=== PATIENT | female | born 1985 | race Two or more races ===

== ENCOUNTER 2020-04-18 16:27 | Emergency (ER) | payer MEDICAID ==
[~2020-04-18] VITALS: Ht 165.1 cm; Wt 80.7 kg
[~2020-04-18 16:27] MED LIST: PREN-96 PO
[2020-04-18 18:14] LABS: Basophils # (auto) 0.1 10 ^3/uL (0-0.2); Basophils % (auto) 0.9 % (0.0-2.0); Eosinophils # (auto) 0.1 10 ^3/uL (0-0.8); Eosinophils % (auto) 1.5 % (0.0-7.0); Lymphocytes # (auto) 2.6 10 ^3/uL (0.4-5.4); Lymphocytes % (auto) 41.4 % (10.0-50.0); Mean Corpuscular Hemoglobin 28.3 pg (28.0-32.0); Mean Corpuscular Hgb Conc. 33.4 g/dL (32.0-36.0); Mean Corpuscular Volume 84.8 fL (80.0-100.0); Monocytes # (auto) 0.4 10 ^3/uL (0-1.3); Neutrophils % (auto) 49.2 % (37.0-80.0); Platelet Count (auto) 340 10^3/uL (140-450); Red Cell Distribution Width 15.3 % (11.8-14.3); White Blood Cell 6.2 10^3/uL (4.4-10.8)
[2020-04-18 18:37] LABS: Albumin 3.7 g/dL (3.4-5.0); Anion Gap 5 (5-15); Blood Urea Nitrogen 15 mg/dL (7-18); Calcium 8.3 mg/dL (8.5-10.1); Carbon Dioxide 29 mmol/L (21-32); Chloride 106 mmol/L (98-107); Glucose 111 mg/dL (74-106); Magnesium 2.5 mg/dL (1.6-2.6); Potassium 3.6 mmol/L (3.5-5.1); Sodium 140 mmol/L (136-145)
[2020-04-18 18:43] LABS: Alanine Aminotransferase 34 U/L (13-56); Alkaline Phosphatase 102 U/L (45-117); Aspartate Aminotransferase 20 U/L (15-37); Bilirubin, Total 0.2 mg/dL (0.2-1.0); Creatine Kinase IFCC 217 U/L (26-192); GFR African American 80 mL/min; GFR Non-African American 66 mL/min; Total Protein 7.7 g/dL (6.4-8.2)
[2020-04-18 19:44] LABS: BUN/Creatinine Ratio 14.9
[2020-04-18 20:05] LABS: CRP High Sensitivity 0.36 mg/dL (< 0.3)
[2020-04-18 21:30] VITALS: BP 112/78
== END 2020-04-18 21:30 | disposition home or self-care (01) ==
LOC: ER 16:27
DX: M62.81 Muscle weakness (generalized) (principal)
CPT/HCPCS: 36415; 70450; 71045; 80053; 82550; 83735; 83880; 84484; 85025; 85652; 86141; 93005